=== PATIENT | female | born 1960 | race Caucasian/White ===

== ENCOUNTER 2017-04-17 11:54 | Outpatient (CLI) | payer OTHER | END 2017-04-17 11:55 | disposition home or self-care (01) | LOC: BICMRI 11:54 | PROVIDERS: ATTEND Family Medicine | DX: A88.1 Epidemic vertigo (principal) | CPT/HCPCS: 70553 ==

== ENCOUNTER 2025-02-17 08:45 | Outpatient (CLI) | payer BC | END 2025-02-17 08:46 | disposition home or self-care (01) | LOC: SCSBT 08:45 | PROVIDERS: ATTEND Family Medicine | DX: M85.89 Other specified disorders of bone density and structure, multiple sites (principal) | CPT/HCPCS: 77080 ==